=== PATIENT | male | born 1985 | race Caucasian/White ===

== ENCOUNTER → 2023-03-23 | Day surgery (SDC) | payer BC, OTHER ==
[~2023-03-23] MED LIST: BUPIVACAINE 0.25% PF 10 ML VIAL ONE; FENTANYL CITR 100 MCG/2 ML ONE; GLYCOPYRROLATE 0.2 MG/ML SYR ONE; HYDROCODONE/APAP 10/325 TAB ONE; KETOROLAC 30 MG/ML INJ ONE; MIDAZOLAM HCL 2 MG/2 ML INJ ONE; MORPHINE 4 MG/ML SYR ONE; NA CHLORIDE 0.9% 1,000 ML ONE; NA CHLORIDE 0.9% 100 ML ONE; NEOSTIGMINE 1 MG/ML -10 ML VIAL ONE; ONDANSETRON 4 MG/2 ML VIAL ONE; PIPERACIL/TAZO 3.375 GM VIAL IV ONE; ROCURONIUM 50 MG/5 ML VIAL IV ONE; Ringers Lactate 1,000 ML IV ONE; SUCCINYLCHOLINE 20 MG/ML (10 ML) IV ONE; propofoL 200 MG/20 ML VIAL IV ONE
[2023-03-23 12:40] LABS: Absolute Lymphocytes (CBC) 1.4 K/uL (0.7-4.9); Hematocrit 48.7 % (39.6-49.0); Lymphocytes % 6.8 % (15.3-44.8); MPV 7.8 fL (7.6-11.3); Platelets 296 thou/uL (152-406); RBC Red Blood Cell Count 5.59 M/uL (4.33-5.43)
--- NOTE | 2023-03-23 12:50 | RAD REPORT ---
EXAM DESCRIPTION: CTAbdomen Pelvis W Contrast - 03/23/2023 12:42 pm CLINICAL HISTORY: Abdominal pain. RLQ PAIN COMPARISON: No comparisons TECHNIQUE: Biphasic CT imaging of the abdomen and pelvis was performed with 100 ml non-ionic IV cont rast. All CT scans are performed using dose optimization technique as appropriate and may include automated exposure control or mA/KV adjustment according to patient size. FINDINGS: The lung bases are clear. The liver shows diffuse fatty liver. Spleen, pancreas, adrenal glands and kidneys are within normal l imits. No bowel obstruction, free air, free fluid or abscess. The appendix is enlarged and mildly inflamed measuring 13 mm. No evidence of significant lymphadenopathy. No suspicious bony findings. IMPRESSION: Acute appendicitis.
[2023-03-23 12:53] LABS: Specific Gravity > 1.030 (1.005-1.030); Urine Bacteria <20 /HPF (<20); Urine Bilirubin NEGATIVE (Negative); Urine Blood Trace (Negative); Urine Clarity Turbid (Clear); Urine Color Yellow (Yellow); Urine Glucose NEGATIVE (Negative); Urine Mucus 4+ /HPF (None Seen); Urine Protein 1+ (Negative); Urine RBC <5 /HPF (None Seen); Urine Urobilinogen Normal (Normal); Urine pH 5.5 (5.0-7.0)
--- NOTE | 2023-03-23 13:07 | ER ---
Nurse's Notes [facility] Name: Bairon Matthew II Age: 37 yrs Sex: Male : 1985 Arrival Date: 03/23/2023 Time: 11:57 Bed 14 Private MD: Diagnosis: Unspecified acute appendicitis Presentation: 03/23 12:10 Chief complaint: Patient states: RLQ pain since this morning. Vomited one time about an eh3 hour ago. Had breakfast early this morning and water to drink. Coronavirus screen: Vaccine status: Patient reports being unvaccinated. Ebola Screen: No symptoms or risks identified at this time. Initial Sepsis Screen: Does the patient meet any 2 criteria? No. Patient's initial sepsis screen is negative. Does the patient have a suspected source of infection? No. Patient's initial sepsis screen is negative. Risk Assessment: Do you want to hurt yourself or someone else? Patient reports no desire to harm self or others. Onset of symptoms was March 23, 2023. 12:10 Method Of Arrival: Ambulatory 3 12:10 Acuity: TRAY 3 eh3 Triage Assessment: 12:12 General: Appears distressed, uncomfortable, Behavior is cooperative, appropriate for [facility] age, restless. Pain: Complains of pain in right lower quadrant. GI: Abdomen is round non-distended, Reports lower abdominal pain, nausea, vomiting. Historical: - Allergies: 12:12 No Known Allergies; eh3 - Home Meds: 12:12 None [Active]; eh3 - Immunization history:: Adult Immunizations not up to date. - Social history:: Smoking status: Patient denies any tobacco usage or history of. Patient uses alcohol, on a daily basis. - Family history:: not pertinent. Screenin:15 [facility] ED Fall Risk Assessment (Adult) History of falling in the last 3 months, bp including since admission No falls in past 3 months (0 pts). Abuse screen: Denies threats or abuse. Denies injuries from another. Nutritional screening: No deficits noted. Tuberculosis screening: No symptoms or risk factors identified. Assessment: 12:15 General: SEE TRIAGE NOTE. bp 13:53 Reassessment: No changes from previously documented assessment. Patient is alert, bp oriented x 3, equal unlabored respirations, skin warm/dry/pink. 14:37 Reassessment: PT SHAHIDA TO OR. bp Vital Signs: 12:10 BP 153 / 107; Pulse 76; Resp 20; Temp 97.9(O); Pulse Ox 100% ; Weight 102.06 kg; Height eh3 6 ft. 0 in. ; Pain 9/10; 13:52 BP 119 / 77; Pulse 70; Resp 16; Pulse Ox 95% ; bp 14:36 BP 141 / 89; Pulse 59; Resp 16; Pulse Ox 95% ; bp 12:10 Body Mass Index 30.52 (102.06 kg, 182.88 cm) eh3 12:10 Pain Scale: Adult eh3 ED Course: 11:58 Patient arrived in ED. im 12:00 Wm Benitez MD is Attending Physician. rt 12:12 Triage completed. eh3 12:12 Arm band placed on. eh3 12:15 Patient has correct armband on for positive identification. Bed in low position. Call bp light in reach. Side rails up X2. Adult w/ patient. 12:16 George Sauer, NOELLE is Primary Nurse. bp 12:34 Inserted saline lock: 20 gauge in right forearm, using aseptic technique. Blood bp collected. 12:44 CT Abd/Pelvis - IV Contrast Only In Process Unspecified. EDMS 13:06 Terence Arnold MD is Hospitalizing Provider. rt 13:53 No provider procedures requiring assistance completed. Patient admitted, IV remains in bp place. Administered Medications: 12:32 Drug: morphine IVP or IV 4 mg Route: IVP; Infused Over: 4 mins; Site: right forearm; bp 13:54 Follow up: Response: No adverse reaction bp 12:33 Drug: TORadol - Ketorolac IVP 15 mg Route: IVP; Site: right forearm; bp 13:54 Follow up: Response: No adverse reaction bp 12:34 Drug: NS 0.9% IV 1000 ml Route: IV; Rate: 1 bolus; Site: right forearm; bp 13:53 Follow up: IV Status: Completed infusion; IV Intake: 1000ml bp 12:34 Drug: Ondansetron IVP 4 mg Route: IVP; Site: right forearm; bp 13:53 Follow up: Response: No adverse reaction bp 13:16 Drug: Piperacillin-Tazobactam IVPB 4.5 grams Route: IVPB; Infused Over: 60 mins; Site: bp right antecubital; 13:53 Follow up: IV Status: Completed infusion; IV Intake: 100ml bp 13:22 Drug: morphine IVP or IV 4 mg Route: IVP; Infused Over: 4 mins; Site: right antecubital;bp 13:53 Follow up: Response: No adverse reaction bp Medication: 12:15 VIS not applicable for this client. bp Intake: 13:53 IV: 100ml; Total: 100ml. bp 13:53 IV: 1000ml; Total: 1100ml. bp Outcome: 13:06 Decision to Hospitalize by Provider. rt 14:37 Admitted to OR accompanied by nurse, via wheelchair. bp 14:37 Condition: stable 14:37 Instructed on the need for admit. 14:37 Patient left the ED. bp Signatures: Dispatcher [employer] George Williamson RN RN bp Hall, Erin, RN RN 3 Wm Benitez MD MD rt Tamara Clements im
--- NOTE | 2023-03-23 13:07 | EDPHYS ---
Physician Documentation [facility] Name: Bairon Matthew II Age: 37 yrs Sex: Male : 1985 Arrival Date: 03/23/2023 Time: 11:57 Bed 14 Private MD: ED Physician Wm Benitez HPI: 03/23 13:06 This 37 yrs old Male presents to ER via Ambulatory with complaints of Abdominal Pain. rt 13:06 Patient presents to the ED with a sharp abdominal pain to the right lower quadrant rt starting this morning. Patient states that he felt well when he went to bed. The patient states that the pain is sharp, radiates to the periumbilical, to the right testicle. Denies any dysuria, hematuria. Patient did have nausea, vomiting. Denies hematemesis, hematochezia. Denies other acute complaints at this time, symptoms are moderate in severity, no other aggravating alleviating factors.. Historical: - Allergies: 12:12 No Known Allergies; eh3 - Home Meds: 12:12 None [Active]; eh3 - Immunization history:: Adult Immunizations not up to date. - Social history:: Smoking status: Patient denies any tobacco usage or history of. Patient uses alcohol, on a daily basis. - Family history:: not pertinent. ROS: 13:06 Constitutional: Negative for fever, chills, and weight loss, Cardiovascular: Negative rt for chest pain, palpitations, and edema, Respiratory: Negative for shortness of breath, cough, wheezing, and pleuritic chest pain, MS/Extremity: Negative for injury and deformity, Skin: Negative for injury, rash, and discoloration, Neuro: Negative for headache, weakness, numbness, tingling, and seizure, Psych: Negative for depression, anxiety, suicide ideation, homicidal ideation, and hallucinations. 13:06 Abdomen/GI: Positive for abdominal pain, nausea and vomiting. 13:06 : Positive for testicular pain Negative for burning with urination. Exam: 13:06 Constitutional: This is a well developed, well nourished patient who is awake, alert, rt and in no acute distress. Head/Face: Normocephalic, atraumatic. Chest/axilla: Normal chest wall appearance and motion. Nontender with no deformity. No lesions are appreciated. Cardiovascular: Regular rate and rhythm with a normal S1 and S2. No gallops, murmurs, or rubs. Normal PMI, no JVD. No pulse deficits. Respiratory: Lungs have equal breath sounds bilaterally, clear to auscultation and percussion. No rales, rhonchi or wheezes noted. No increased work of breathing, no retractions or nasal flaring. Skin: Warm, dry with normal turgor. Normal color with no rashes, no lesions, and no evidence of cellulitis. MS/ Extremity: Pulses equal, no cyanosis. Neurovascular intact. Full, normal range of motion. Neuro: Awake and alert, GCS 15, oriented to person, place, time, and situation. Cranial nerves II-XII grossly intact. Motor strength 5/5 in all extremities. Sensory grossly intact. Cerebellar exam normal. Normal gait. Psych: Awake, alert, with orientation to person, place and time. Behavior, mood, and affect are within normal limits. 13:06 Abdomen/GI: Tenderness to the right lower quadrant with guarding, no distention, Rovsing sign positive. 13:06 : Normal external genitalia, no testicular swelling, tenderness, no high riding testicle. Vital Signs: 12:10 BP 153 / 107; Pulse 76; Resp 20; Temp 97.9(O); Pulse Ox 100% ; Weight 102.06 kg; Height eh3 6 ft. 0 in. ; Pain 9/10; 13:52 BP 119 / 77; Pulse 70; Resp 16; Pulse Ox 95% ; bp 14:36 BP 141 / 89; Pulse 59; Resp 16; Pulse Ox 95% ; bp 12:10 Body Mass Index 30.52 (102.06 kg, 182.88 cm) eh3 12:10 Pain Scale: Adult eh3 MDM: 12:10 Patient medically screened. rt 03/23 12:17 Order name: CBC with Diff; Complete Time: 13:22 rt 03/23 12:17 Order name: CMP; Complete Time: 13:49 rt 03/23 12:17 Order name: Lipase; Complete Time: 13:49 rt 03/23 12:17 Order name: Urinalysis w/ reflexes; Complete Time: 13:00 rt 03/23 12:53 Order name: CBC Smear Scan; Complete Time: 13:22 EDMS 03/23 12:17 Order name: CT Abd/Pelvis - IV Contrast Only; Complete Time: 12:53 rt 07 12:17 Order name: IV Saline Lock; Complete Time: 12:32 rt 07 12:17 Order name: Labs collected and sent; Complete Time: 12:32 rt 03/23 12:40 Order name: Labs - recollect needed; Complete Time: 13:16 em1 Administered Medications: 12:32 Drug: morphine IVP or IV 4 mg Route: IVP; Infused Over: 4 mins; Site: right forearm; bp 13:54 Follow up: Response: No adverse reaction bp 12:33 Drug: TORadol - Ketorolac IVP 15 mg Route: IVP; Site: right forearm; bp 13:54 Follow up: Response: No adverse reaction bp 12:34 Drug: NS 0.9% IV 1000 ml Route: IV; Rate: 1 bolus; Site: right forearm; bp 13:53 Follow up: IV Status: Completed infusion; IV Intake: 1000ml bp 12:34 Drug: Ondansetron IVP 4 mg Route: IVP; Site: right forearm; bp 13:53 Follow up: Response: No adverse reaction bp 13:16 Drug: Piperacillin-Tazobactam IVPB 4.5 grams Route: IVPB; Infused Over: 60 mins; Site: bp right antecubital; 13:53 Follow up: IV Status: Completed infusion; IV Intake: 100ml bp 13:22 Drug: morphine IVP or IV 4 mg Route: IVP; Infused Over: 4 mins; Site: right antecubital;bp 13:53 Follow up: Response: No adverse reaction bp Disposition Summary: 03/23/23 13:06 Hospitalization Ordered Hospitalization Status: Observation rt Provider: Terence Arnold rt Location: Operating Room rt Condition: Stable rt Problem: new rt Symptoms: are unchanged rt Bed/Room Type: Standard rt Room Assignment: rt Diagnosis - Unspecified acute appendicitis rt Forms: - Medication Reconciliation Form rt - SBAR form rt Signatures: Dispatcher [employer] Ulisses Bernstein MD MD kdr Martinez, Eric em1 George Sauer, RN RN bp Soraya Costa RN RN eh3 Wm Benitez MD MD rt
[2023-03-23 13:21] LABS: Blood Morphology Comment NOT SEEN (NOT SEEN); Platelet Estimate ADEQ; Platelets, Giant 1+; White Blood Cell Scan NEUTROPHILIA (OK)
[2023-03-23 13:38] LABS: Albumin 3.9 g/dL (3.4-5.0); Bilirubin Total 2.5 mg/dL (0.2-1.0); Potassium 3.9 mEq/L (3.5-5.1); Protein, Total 7.9 g/dL (6.4-8.2)
[2023-03-23] MEDS: FENTANYL CITR 100 MCG/2 ML ONE ×2 (14:50→15:50)
--- NOTE | 2023-03-23 18:15 | P.OP ---
Preoperative diagnosis: Acute non-perforated appendicitis Postoperative diagnosis: Acute non-perforated appendicitis Primary procedure: Laparoscopic Appendectomy Anesthesia: GETA + Local Estimated blood loss: <10cc Specimen: Vermiform Appendix Findings: Acute non-perforated appendicitis Complications: None Transferred to: Recovery Room Condition: Good
[2023-03-23] MEDS: MEPERIDINE HCL 25 MG/ML SYR ONE ×2 (18:26→18:30)
[2023-03-23 18:57] VITALS: TEMP 97.8
--- NOTE | 2023-03-23 18:58 | OP ---
Date of Procedure: 03/23/2023 Surgeon: Terence Arnold MD, Preoperative Diagnosis: Acute nonperforated appendicitis. Postoperative Diagnosis: Acute nonperforated appendicitis. Procedure Performed: Laparoscopic appendectomy. Anesthesia: General endotracheal plus local with 0.25% Marcaine. Estimated Blood Loss: Less than 10 cc. Specimen: Vermiform appendix. Findings: Acute nonperforated appendicitis. Complications: None. Disposition: Patient transferred to recovery room in good condition. Procedure In Detail: After informed consent was obtained, patient was brought to the operating room, prepped and draped in the usual sterile fashion after adequate anesthesia was achieved. I anestheti zed an area of this infraumbilical position down to subcutaneous tissues with 0.25% Marcaine, sharply incised. A 5 mm 0-degree optical trocar was introduced in the abdomen without evidence of complicat ion. Insufflation was obtained to 15 mmHg at this time. There was no injury to vital structures upo n entry into the abdomen. Two additional trocars were placed, one in the right lower quadrant, one t o the right of midline in the right lower quadrant as well. Both were 5 mm trocars placed under dire ct visualization without evidence of complication. The infraumbilical trocar was then upsized to a 1 2 mm under direct visualization without evidence of complication. The patient was positioned head do wn right side up position. Ratcheted grasper was used to grasp the patient's appendix found in the r ight lower quadrant. This was grasped, elevated and a mesoappendiceal window was created with a Daisy giselle retractor. Endo-MARISA 60 fired across the base of the appendix with good approximation of tissues . I then used a LigaSure device to take down the mesoappendix. There was 1 pumping vessel through a partial transection. Using the LigaSure device, this was elevated, grasped, and LigaSure was used t o achieve hemostasis at this with a second capture with good hemostasis at this point. The appendix was then removed through the umbilical trocar site after being placed in EndoCatch bag and sent off f or pathologic examination. A reinsufflation was obtained at this point. The right lower quadrant wa s copiously irrigated multiple times, inspected. No additional hemostatic measures were required. T he area was suctioned out until completely clear. The pelvis was suctioned out after adequate irriga tion as well. The patient was positioned back in a neutral position. The remaining effluent was suc tioned out. No additional hemostatic measures were required. Cathy found in good anatomic positio n without any leakage of blood or bile. At this point, the 12 mm trocar site was closed using a Melchor Centeno suture passer with 0 Vicryl in running fashion with good approximation of tissues. The u mbilicus was then completely desufflated under direct visualization without evidence of complication. Remaining trocars were removed. All skin sites were then copiously irrigated, closed with 4-0 [place] cryl in a running fashion. Dermabond placed over top. The patient tolerated the procedure well with out evidence of any complication and transferred to PACU in good condition. All counts were correct at the end of the case. LAURO/HANNY Voice ID: [id number] Report ID: [id number]
[2023-03-23 19:34] VITALS: BP 134/83; O2SAT 95
--- NOTE | 2023-03-23 19:37 | HP ---
Date of Admission: 03/23/2023 Brief History Of Present Illness: Patient is a 37-year-old male who presents with abdominal pain beg inning approximately this morning. He states that his pain got progressively worse. It was associat ed with some nausea, vomiting. It got somewhat improved after a large bowel movement, however, it co ntinued to get much worse. He tried eating another muffin which seemed to make the pain significantl y worse. The pain was in the periumbilical region with significant localization to the right lower q uadrant at this point. He noted now worsening of nausea, vomiting, pain, fever, chills associated wi th all these symptoms and the pain has now localized in the right lower quadrant. He has never had s imilar episodes before in the past. No sick contacts. No recent travel. No new food exposures. Past Medical History: Negative. Past Surgical History: Negative. Allergies: NO KNOWN DRUG ALLERGIES. Medications: None. Social History: He vapes occasionally. He drinks alcohol 2 to 3 beers a day. He denies recreationa l drug use. Review of Systems: Ten-point review of systems other than HPI, denies. Physical Examination: At the time of my examination: General: He is awake, alert, and oriented. Psychiatric: He is appropriate, conversive. HEENT: He is normocephalic. Sclerae anicteric. Mucous membranes are moist. Oropharynx clear. Neck: Supple without JVD. Chest: Expansion and excursion. Cardiovascular: Regular rate and rhythm. Pulmonary: Clear to auscultation bilaterally. Abdomen: Soft with the positive right lower quadrant tenderness to palpation. Positive focal perito nitis at McBurney's point. Positive rebound. Positive guarding. Extremities: No clubbing, cyanosis, or edema. Skin: Warm and dry. Laboratory Data: Revealed a white blood cell count of 20.8, hemoglobin 16.6, hematocrit of 48.7, pat telet count was 296, neutrophils 87%. His sodium 133, potassium 3.9, chloride 104, carbon dioxide 23 , BUN 12, creatinine 1.25, glucose 132, calcium 9.6, total bilirubin 2.5, AST 35, ALT 86, alkaline ph osphatase is 83, lipase is 35. His UA showed trace blood, 4+ mucus, 1+ total protein. He had a CT s can performed of the abdomen and pelvis which showed the appendix enlarged, mildly inflamed, measurin g 13 mm. No evidence of significant lymphadenopathy. Official impression is acute appendicitis. Assessment And Plan: This is a 37-year-old male who presents with abdominal pain with acute onset of nonperforated appendicitis. 1.IV fluid hydration. 2.Antibiotic coverage with Zosyn 3.375 IV. 3.I have explained the risks, benefits, and alternatives of laparoscopic possible open appendectomy including, but not limited to, bleeding, infection, damage to surrounding tissue, need for further op erative procedures, injury to bowel, blood clots, strokes, heart attacks, trouble related to anesthes ia and medications, other unforeseen complication. Patient agrees to proceed as indicated. LAURO/HANNY Voice ID: [id number]
== END ==
LOC: ER 11:57 → DS 14:37
PROVIDERS: ATTEND Surgery
PROC: 0DTJ4ZZ Resection of Appendix, Percutaneous Endoscopic Approach (ICD-10-PCS; principal; 2023-03-23 19:00)
DX: K35.80 Unspecified acute appendicitis (principal); R10.9 Unspecified abdominal pain; R11.2 Nausea with vomiting, unspecified
CPT/HCPCS: 36415; 74177; 80053; 81001; 83690; 85025; 88304; 96361; 96365; 96375; 99285; J2175; J2250; J2405; J2543; J2704; J2710; J3010; J7030; J7120; Q9967

== ENCOUNTER 2023-04-27 21:36 | Inpatient (IN) | payer BC ==
--- OUTSIDE RECORDS SUMMARY | 2023-04-27 21:40 | XMS REPORT | Continuity of Care Document ---
:1985 Author Organization [facility] t Address [address] [place] [id number] Care Team Providers Name Role Phone Unavailable Unavailable Unavailable Problems This patient has no known problems. Allergies, Adverse Reactions, Alerts This patient has no known allergies or adverse reactions. Medications This patient has no known medications. Procedures This patient has no known procedures. Results This patient has no known results.
[2023-04-27] MEDS ORDERED: FAMOTIDINE 20 MG/2 ML VIAL IV ONE (21:59)
[2023-04-27] MEDS ORDERED: NA CHLORIDE 0.9% 1,000 ML ONE (21:59)
[2023-04-27] MEDS ORDERED: ONDANSETRON 4 MG/2 ML VIAL ONE (21:59)
[2023-04-27] MEDS ORDERED: HYDROMORPHONE HCL 1 MG/ML INJ ONE ×2 (21:59→23:13)
[2023-04-27 22:31] LABS: Protime INR 0.93
--- NOTE | 2023-04-27 22:32 | RAD REPORT ---
EXAM DESCRIPTION: [facility] Single View04/27/2023 10:25 pm CLINICAL HISTORY: Abdominal pain COMPARISON: none FINDINGS: The lungs appear clear of acute infiltrate. The heart is normal size IMPRESSION: No acute abnormalities displayed
[2023-04-27 22:45] LABS: Absolute Lymphocytes (CBC) 3.5 K/uL (0.7-4.9); Hematocrit 47.2 % (39.6-49.0); Lymphocytes % 22.7 % (15.3-44.8); MCV 85.7 fL (80-100); MPV 8.1 fL (7.6-11.3); Platelets 286 thou/uL (152-406); RBC Red Blood Cell Count 5.51 M/uL (4.33-5.43)
[2023-04-27 22:50] LABS: Bilirubin Direct 0.2 mg/dL (0-0.2); Bilirubin Indirect, Calculated 0.8 mg/dL (0.2-0.8); Magnesium 2.3 mg/dL (1.6-2.4); Potassium 3.5 mEq/L (3.5-5.1); Protein, Total 8.2 g/dL (6.4-8.2); Troponin High Sensitivity 3.2 pg/mL (<58.9)
[2023-04-28] MEDS ORDERED: HYDRALAZINE HCL 20 MG/ML VIAL ONE (00:13)
[2023-04-28] MEDS ORDERED: ONDANSETRON 4 MG/2 ML VIAL ONE ×2 (00:23→12:15)
[2023-04-28] MEDS ORDERED: KETOROLAC 30 MG/ML INJ ONE ×2 (00:24→12:15)
[2023-04-28] MEDS ORDERED: NA CHLORIDE 0.9% 1,000 ML ONE (00:24)
--- NOTE | 2023-04-28 01:43 | EDPHYS ---
Physician Documentation [facility] Name: Bairon Matthew II Age: 37 yrs Sex: Male : 1985 Arrival Date: 04/27/2023 Time: 21:36 Bed 19 Private MD: ED Physician Quinton Pandey HPI: 04/27 21:50 This 37 yrs old Male presents to ER via Wheelchair with complaints of Epigastric Pain. cp 21:50 The patient presents with abdominal pain in the epigastric area. Onset: The cp symptoms/episode began/occurred today, about 1900. The symptoms radiate to low back. Associated signs and symptoms: Pertinent positives: chest pain, nausea, Pertinent negatives: constipation, diarrhea, fever, shortness of breath, testicular pain, vomiting, vomiting blood. The symptoms are described as constant. Historical: - Allergies: 21:45 No Known Allergies; cm10 - Home Meds: 21:45 None [Active]; cm10 - PMHx: 21:45 None; cm10 - PSHx: 21:45 Appendectomy; cm10 - Immunization history:: Adult Immunizations unknown. - Social history:: Smoking status: Reported history of juuling and/or vaping. ROS: 21:55 Constitutional: Negative for body aches, chills, fever, poor PO intake. cp 21:55 Eyes: Negative for injury, pain, redness, and discharge. cp 21:55 Respiratory: Negative for cough, shortness of breath, wheezing. 21:55 Abdomen/GI: Positive for abdominal pain, nausea, of the epigastric area, Negative for vomiting, diarrhea, constipation. 21:55 ENT: Negative for drainage from ear(s), ear pain, sore throat, difficulty swallowing, cp difficulty handling secretions. 21:55 Cardiovascular: Positive for chest pain, Negative for edema, palpitations. 21:55 Back: Positive for pain at rest, pain with movement, of the low back. 21:55 : Negative for urinary symptoms, testicular pain 21:55 Neuro: Negative for altered mental status, dizziness, headache, numbness, syncope, weakness. 21:55 All other systems are negative. cp Exam: 21:50 ECG was reviewed by the Attending Physician. cp 22:00 Constitutional: The patient appears alert, awake, non-toxic, well developed, well cp nourished, diaphoretic, in obvious distress, in obvious pain. 22:00 Head/Face: Normocephalic, atraumatic. cp 22:00 Eyes: Periorbital structures: appear normal, Conjunctiva: normal, no exudate, no injection, Sclera: no appreciated abnormality, Lids and lashes: appear normal, bilaterally. 22:00 ENT: External ear(s): are unremarkable, Nose: is normal, Mouth: Lips: moist, Oral mucosa: pink and intact, moist, Posterior pharynx: is normal, airway is patent, no erythema, no exudate. 22:00 Neck: ROM/movement: is normal, is supple, without pain, no range of motions limitations. 22:00 Chest/axilla: Inspection: normal, Palpation: is normal, no crepitus, no tenderness. 22:00 Cardiovascular: Rate: normal, Rhythm: regular, Edema: is not appreciated, JVD: is not appreciated. 22:00 Respiratory: the patient does not display signs of respiratory distress, Respirations: normal, no use of accessory muscles, no retractions, labored breathing, is not present, Breath sounds: are clear throughout, no decreased breath sounds, no stridor, no wheezing. 22:00 Abdomen/GI: Inspection: abdomen appears normal, Bowel sounds: active, all quadrants, Palpation: soft, in all quadrants, severe abdominal tenderness, in the epigastric area, voluntary guarding, is elicited in the epigastric area. 22:00 Back: pain, that is moderate, of the low back area. 22:00 Neuro: Orientation: to person, place \T\ time. Mentation: is normal. 22:47 ECG was reviewed by the Attending Physician. cp Vital Signs: 21:34 BP 175 / 103; Pulse 67; Resp 20 S; Pulse Ox 100% on R/A; ha1 21:43 BP 175 / 103; Pulse 65; Resp 18 S; Pulse Ox 100% on R/A; Weight 102.06 kg; Height 6 ft. cm10 0 in. ; Pain 10/10; 22:20 BP 174 / 98; Pulse 55; Resp 17; Pulse Ox 100% on R/A; ha1 22:30 BP 185 / 107; Pulse 42; Resp 18 S; Pulse Ox 100% on R/A; ha1 23:00 BP 184 / 108; Pulse 46; Resp 17 S; Pulse Ox 100% on R/A; ha1 23:30 BP 187 / 95; Pulse 56; Resp 17 S; Pulse Ox 100% on R/A; ha1 23:55 BP 214 / 104; Pulse 38; Resp 16 S; Pulse Ox 100% on R/A; ha1 04/28 00:08 BP 195 / 95; Pulse 37; Resp 16 S; Pulse Ox 100% on R/A; ha1 00:35 BP 152 / 81; Pulse 78; Resp 20; Pulse Ox 99% on R/A; ha1 01:00 BP 142 / 81; Pulse 75; Resp 18 S; Pulse Ox 98% on R/A; ha1 01:30 BP 149 / 89; Pulse 74; Resp 18 S; Pulse Ox 99% on R/A; ha1 04/27 21:43 Body Mass Index 30.52 (102.06 kg, 182.88 cm) cm10 21:43 Pain Scale: Adult cm10 MDM: 04/27 21:42 Patient medically screened. 04/28 20:35 Data reviewed: vital signs, nurses notes, lab test result(s), radiologic studies, CT sp4 scan, ultrasound. ED course: Patient was ear marked for admission . 04/27 21:46 Order name: Basic Metabolic Panel; Complete Time: 22:59 cp 04/27 23:13 Interpretation: Normal except: GLUC 114; GFR 76. cp 04/27 21:46 Order name: CBC with Diff; Complete Time: 22:59 cp 04/27 23:13 Interpretation: Normal except: WBC 15.40; RBC 5.51; NEUT A 10.4. cp 04/27 21:46 Order name: LFT's; Complete Time: 22:59 cp 04/27 23:13 Interpretation: Normal except: ALT 80; GLOB 4.2; A/G 1.0. cp 04/27 21:46 Order name: Magnesium; Complete Time: 22:59 cp 04/27 21:46 Order name: PT-INR; Complete Time: 22:59 cp 04/27 21:46 Order name: Troponin HS; Complete Time: 22:59 cp 04/27 23:13 Interpretation: Reviewed. cp 04/27 21:46 Order name: Lipase; Complete Time: 22:59 cp 04/27 23:13 Interpretation: Reviewed. cp 04/27 23:59 Order name: UDS; Complete Time: 20:36 cp 08/07 23:59 Order name: Urinalysis W/Microscopic; Complete Time: 20:36 cp 08/08 00:34 Order name: Blood Culture Adult (2) cp 08/ 00:34 Order name: Lactate w/ 2H reflex if indic.; Complete Time: 20:36 cp 08 21:46 Order name: XRAY Chest (1 view); Complete Time: 22:59 cp 04/27 22:35 Order name: CT Aorta for Dissection; Complete Time: 20:36 cp 04/27 23:38 Order name: US Abdomen Limited; Complete Time: 20:36 cp 04/27 21:46 Order name: EKG; Complete Time: 21:47 cp 04/27 21:46 Order name: Cardiac monitoring; Complete Time: 22:24 cp 04/27 21:46 Order name: EKG - Nurse/Tech; Complete Time: 22:24 cp 04/27 21:46 Order name: IV Saline Lock; Complete Time: 22:24 cp 04/27 21:46 Order name: Labs collected and sent; Complete Time: 22:24 cp 04/27 21:46 Order name: O2 Per Protocol; Complete Time: 22:24 cp 04/27 21:46 Order name: O2 Sat Monitoring; Complete Time: 22:24 cp EC/07 21:50 Rate is 59 beats/min. Rhythm is regular. WV interval is normal. QRS interval is normal. cp QT interval is normal. T waves are Inverted in leads aVL, aVR. Interpreted by me. Reviewed by me. 22:47 Rate is 42 beats/min. Rhythm is regular. WV interval is normal. QRS interval is normal. cp QT interval is normal. T waves are Inverted in lead aVR. Interpreted by me. Reviewed by me. Administered Medications: 22:12 Drug: NS 0.9% IV 1000 ml Route: IV; Rate: 1 bolus; Site: right upper arm; ha1 22:12 Drug: Famotidine IVP 20 mg Route: IVP; Site: right upper arm; ha1 22:14 Drug: Ondansetron IVP 4 mg Route: IVP; Site: right upper arm; ha1 22:16 Drug: HYDROmorphone IVP 1 mg Route: IVP; Site: right upper arm; ha1 23:00 Drug: HYDROmorphone IVP 1 mg Route: IVP; Site: right upper arm; ha1 04/28 00:00 Not Given (Physician Discretion): Ativan IVP 0.5 mg IVP once cp 00:01 CANCELLED (Physician Discretion): hydrALAZINE IVP 10 mg IVP once cp 00:05 Drug: hydrALAZINE IVP 20 mg Route: IVP; Site: right upper arm; ha1 00:12 Drug: NS 0.9% IV 1000 ml Route: IV; Rate: 1 bolus; Site: right upper arm; ha1 00:12 Drug: Ketorolac IVP 15 mg Route: IVP; Site: right upper arm; ha1 00:14 Drug: Ondansetron IVP 4 mg Route: IVP; Site: right upper arm; ha1 02:29 Drug: Piperacillin-Tazobactam IVPB 3.375 grams Route: IVPB; Infused Over: 60 mins; ha1 Site: left antecubital; Disposition: 02:12 Co-signature as Attending Physician, Quinton Pandey MD I agree with the assessment sp4 and plan of care. I reviewed the patient's care provided by Advanced Practice Provider \T\ agree w/ the diagnosis \T\ care plan. I personally saw the pt \T\ performed a substantive portion of the visit, incldng all aspects of the (History/Exam/Medical Decision Making). Disposition Summary: 04/28/23 01:43 Hospitalization Ordered Hospitalization Status: Inpatient Admission cp Provider: Tomasz Pemberton cp Location: Telemetry/MedSurg (Inpatient) cp Condition: Stable cp Problem: new cp Symptoms: have improved cp Bed/Room Type: Standard cp Room Assignment: 404(04/28/23 02:22) cg Diagnosis - Acute cholecystitis cp - Bradycardia, unspecified cp - Elevated blood-pressure reading, without diagnosis of hypertension cp Forms: - Medication Reconciliation Form cp - SBAR form cp Signatures: Dispatcher [employer] EDMS Rito Gomez PA PA cp Garcia, Cindy, RN RN cg Manjula Rosa RN RN Quinton Barbosa MD MD sp4 Aylin Wick RN RN cm10 Corrections: (The following items were deleted from the chart) 00:01 00:01 hydrALAZINE IVP 10 mg IVP once ordered. cp cp 02:22 01:43 cp cg 03:06 04/27 21:50 This 37 yrs old Male presents to ER via Wheelchair with complaints of Chest cp Pain. cp
--- NOTE | 2023-04-28 01:43 | ER ---
Nurse's Notes [facility] Name: Bairon Matthew II Age: 37 yrs Sex: Male : 1985 Arrival Date: 04/27/2023 Time: 21:36 Bed 19 Private MD: Diagnosis: Acute cholecystitis;Bradycardia, unspecified;Elevated blood-pressure reading, without diagnosis of hypertension Presentation: 04/27 21:43 Chief complaint: Patient states: epigastric pain onset at 1900. Pt states that the pain cm10 started after he got home from work. Pt describes the pain as a sharp pain and reports vomiting 3-4 times. Pt states that the pain does not radiate and rates it a 12/10. Coronavirus screen: Client denies travel out of the [place] in the last 14 days. Ebola Screen: Patient denies travel to an Ebola-affected area in the 21 days before illness onset. No symptoms or risks identified at this time. Initial Sepsis Screen: Does the patient meet any 2 criteria? No. Patient's initial sepsis screen is negative. Does the patient have a suspected source of infection? No. Patient's initial sepsis screen is negative. Risk Assessment: Do you want to hurt yourself or someone else? Patient reports no desire to harm self or others. Onset of symptoms was April 27, 2023 at 19:00. 21:43 Method Of Arrival: Wheelchair cm10 21:43 Acuity: TRAY 3 cm10 Triage Assessment: 21:28 General: Appears uncomfortable, Behavior is cooperative, anxious, crying, restless. ha1 General: Appears. Pain: Complains of pain in epigastric area Pain radiates to back Pain currently is 10 out of 10 on a pain scale. Quality of pain is described as burning, crampy, sharp, throbbing. Neuro: Level of Consciousness is awake, alert, obeys commands, Oriented to person, place, time, situation. Cardiovascular: Heart tones S1 S2 present Patient's skin is warm and dry. Respiratory: Airway is patent Respiratory effort is even, unlabored, Respiratory pattern is regular, symmetrical. GI: Abdomen is round non-distended, Bowel sounds present X 4 quads. Reports epigastric pain, nausea, vomiting. : No signs and/or symptoms were reported regarding the genitourinary system. Derm: Skin is pale. Musculoskeletal: Circulation, motion, and sensation intact. Historical: - Allergies: 21:45 No Known Allergies; cm10 - Home Meds: 21:45 None [Active]; cm10 - PMHx: 21:45 None; cm10 - PSHx: 21:45 Appendectomy; cm10 - Immunization history:: Adult Immunizations unknown. - Social history:: Smoking status: Reported history of juuling and/or vaping. Screenin:38 [facility] ED Fall Risk Assessment (Adult) History of falling in the last 3 months, ha1 including since admission No falls in past 3 months (0 pts) Confusion or Disorientation No (0 pts) Intoxicated or Sedated No (0 pts) Impaired Gait No (0 pts) Mobility Assist Device Used No (0 pt) Altered Elimination No (0 pt) Score/Fall Risk Level 0 - 2 = Low Risk Oriented to surroundings, Maintained a safe environment, Educated pt \\T\\ family on fall prevention, incl call for assistance when getting out of bed. Abuse screen: Denies threats or abuse. Denies injuries from another. Nutritional screening: No deficits noted. Tuberculosis screening: No symptoms or risk factors identified. Assessment: 21:38 Reassessment: see triage assessment. ha1 21:45 Reassessment: vomiting. ha1 22:00 Reassessment: Patient and/or family updated on plan of care and expected duration. Pain ha1 level reassessed. notified care provider Page about irregular heart rate. States "repeat EKG". 04/28 00:35 Reassessment: Patient and/or family updated on plan of care and expected duration. Pain ha1 level reassessed. Patient is alert, oriented x 3, equal unlabored respirations, skin warm/dry/pink. Patient states feeling better. Patient states symptoms have improved. 01:30 Reassessment: Patient and/or family updated on plan of care and expected duration. Pain ha1 level reassessed. Patient is alert, oriented x 3, equal unlabored respirations, skin warm/dry/pink. pain 8/10 Patient states feeling better. Patient states symptoms have improved. 02:33 Reassessment: attempted to give report. 1 Vital Signs: 04/27 21:34 BP 175 / 103; Pulse 67; Resp 20 S; Pulse Ox 100% on R/A; ha1 21:43 BP 175 / 103; Pulse 65; Resp 18 S; Pulse Ox 100% on R/A; Weight 102.06 kg; Height 6 ft. cm10 0 in. ; Pain 10/10; 22:20 BP 174 / 98; Pulse 55; Resp 17; Pulse Ox 100% on R/A; ha1 22:30 BP 185 / 107; Pulse 42; Resp 18 S; Pulse Ox 100% on R/A; ha1 23:00 BP 184 / 108; Pulse 46; Resp 17 S; Pulse Ox 100% on R/A; ha1 23:30 BP 187 / 95; Pulse 56; Resp 17 S; Pulse Ox 100% on R/A; ha1 23:55 BP 214 / 104; Pulse 38; Resp 16 S; Pulse Ox 100% on R/A; ha1 04/28 00:08 BP 195 / 95; Pulse 37; Resp 16 S; Pulse Ox 100% on R/A; ha1 00:35 BP 152 / 81; Pulse 78; Resp 20; Pulse Ox 99% on R/A; ha1 01:00 BP 142 / 81; Pulse 75; Resp 18 S; Pulse Ox 98% on R/A; ha1 01:30 BP 149 / 89; Pulse 74; Resp 18 S; Pulse Ox 99% on R/A; ha1 04/27 21:43 Body Mass Index 30.52 (102.06 kg, 182.88 cm) cm10 21:43 Pain Scale: Adult cm10 ED Course: 04/27 21:38 Patient arrived in ED. kj1 21:42 Rito Gomez PA is PHCP. cp 21:42 Quinton Pandey MD is Attending Physician. cp 21:45 Triage completed. cm10 21:45 Arm band placed on Patient placed in an exam room, on a stretcher, on clinical research monitor, cm10 on pulse oximetry. EKG completed in triage. Results shown to MD. 21:48 Missed attempt(s): 20 gauge in right antecubital area. ha1 22:20 Inserted saline lock: 20 gauge in right upper arm, using aseptic technique. Blood ha1 collected. 22:22 Manjula Rosa, NOELLE is Primary Nurse. ha1 22:24 Basic Metabolic Panel Sent. ha1 22:24 CBC with Diff Sent. ha1 22:24 LFT's Sent. ha1 22:24 Magnesium Sent. ha1 22:24 PT-INR Sent. ha1 22:24 Troponin HS Sent. ha1 22:26 XRAY Chest (1 view) In Process Unspecified. EDMS 23:38 CT Aorta for Dissection In Process Unspecified. EDMS 08 00:15 US Abdomen Limited In Process Unspecified. EDMS 01:42 Tomasz Pemberton MD is Hospitalizing Provider. cp 02:10 Inserted saline lock: 20 gauge in left antecubital area, using aseptic technique. Blood pf1 collected. 02:28 Blood Culture Adult (2) Sent. pf1 03:25 No provider procedures requiring assistance completed. Patient admitted, IV remains in ha1 place. Administered Medications: 04/27 22:12 Drug: NS 0.9% IV 1000 ml Route: IV; Rate: 1 bolus; Site: right upper arm; ha1 22:12 Drug: Famotidine IVP 20 mg Route: IVP; Site: right upper arm; ha1 22:14 Drug: Ondansetron IVP 4 mg Route: IVP; Site: right upper arm; ha1 22:16 Drug: HYDROmorphone IVP 1 mg Route: IVP; Site: right upper arm; ha1 23:00 Drug: HYDROmorphone IVP 1 mg Route: IVP; Site: right upper arm; ha1 04/28 00:00 Not Given (Physician Discretion): Ativan IVP 0.5 mg IVP once cp 00:01 CANCELLED (Physician Discretion): hydrALAZINE IVP 10 mg IVP once cp 00:05 Drug: hydrALAZINE IVP 20 mg Route: IVP; Site: right upper arm; ha1 00:12 Drug: NS 0.9% IV 1000 ml Route: IV; Rate: 1 bolus; Site: right upper arm; ha1 00:12 Drug: Ketorolac IVP 15 mg Route: IVP; Site: right upper arm; ha1 00:14 Drug: Ondansetron IVP 4 mg Route: IVP; Site: right upper arm; ha1 02:29 Drug: Piperacillin-Tazobactam IVPB 3.375 grams Route: IVPB; Infused Over: 60 mins; ha1 Site: left antecubital; Medication: 03:26 VIS not applicable for this client. ha1 Outcome: 01:43 Decision to Hospitalize by Provider. cp 03:25 Admitted to Tele accompanied by amaya, via stretcher, room 404, with chart, Report ha1 called to Suzy 03:25 Condition: stable 03:25 Discharge instructions given to patient, Instructed on the need for admit, Demonstrated understanding of instructions. 03:48 Patient left the ED. ha1 Signatures: Dispatcher [employer] EDMS Rito Gomez PA PA cp Xochilt Mendes kj1 Manjula Rosa RN RN ha1 Earlene Romano RN RN pf1 Aylin Wick RN RN cm10 Corrections: (The following items were deleted from the chart) 04/27 22:25 22:20 HYDROmorphone IVP 1 mg IVP in right upper arm ha1 ha1
[2023-04-28 01:45] LABS: Urine Bacteria None Seen /HPF (<20); Urine Bilirubin NEGATIVE (Negative); Urine Blood Negative (Negative); Urine Clarity Clear (Clear); Urine Color Colorless (Yellow); Urine Glucose TRACE (Negative); Urine Protein NEGATIVE (Negative); Urine RBC None Seen /HPF (None Seen); Urine Urobilinogen Normal (Normal); Urine pH 6.5 (5.0-7.0)
[2023-04-28 01:50] LABS: Specific Gravity > 1.035 (1.005-1.030)
[2023-04-28 02:18] LABS: Barbiturates NEGATIVE (NEGATIVE); Benzodiazepines NEGATIVE (NEGATIVE); Cocaine NEGATIVE (NEGATIVE); METHAMPHETAM NEGATIVE (NEGATIVE); Methadone NEGATIVE (NEGATIVE); Opiates NEGATIVE (NEGATIVE); Phencyclidine NEGATIVE (NEGATIVE); THC Cannibis NEGATIVE (NEGATIVE)
[2023-04-28] MEDS ORDERED: NA CHLORIDE 0.9% 100 ML ONE (02:21)
[2023-04-28] MEDS ORDERED: PIPERACIL/TAZO 3.375 GM VIAL IV ONE (02:22)
[2023-04-28] MEDS ORDERED: HYDROMORPHONE HCL 0.5 MG/0.5 ML INJ IV PRN (02:23)
[2023-04-28] MEDS ORDERED: ONDANSETRON 4 MG/2 ML VIAL IV PRN (02:23)
[2023-04-28] MEDS ORDERED: PROMETHAZINE INJ 25 MG/ML AMP IV PRN (02:43)
--- NOTE | 2023-04-28 02:45 | P.HP ---
Certification for Inpatient Patient admitted to: Inpatient With expected LOS: <2 Midnights Patient will require the following post-hospital care: None Practitioner: I am a practitioner with admitting privileges, knowledge of patient current condition, hospital course, and medical plan of care. Services: Services provided to patient in accordance with Admission requirements found in Title 42 Section 412.3 of the Code of Federal Regulations Patient History Date of Service: 04/28/23 Reason for admission: epigastric pain History of Present Illness: 37 year old male with not significant past medical history presents to the emergency room for epigastric pain. He reports pain started today, is progressively getting worse, radiates to back, he reports associated nausea, vomiting, unable to tolerate PO intake. He reports appendectomy x 1 mo ago. He denies fever, chills, cough, shortness of breath.On arrival to Emergency room was hypertensive. BP was 175/103, had noted bradycardia, he denies cardiac history. Radiology reports, CT choleycytitis, Lab evaluation leukocytois, wbc 15.5, plan to admit for acute cholecysitis, keep NPO surgical consult in am. Allergies No Known Drug Allergies Allergy (Unverified 09/21/14 14:15) Unknown Home Medications: NK [No Home Meds] 04/28/23 - Past Medical/Surgical History Past Medical History: Patient denies medical history -: appendectomy x 1 mo ago - Social History Smoking Status: Smoker current status UNK Alcohol use: No CD- Drugs: No Caffeine use: No Review of Systems 10-point ROS is otherwise unremarkable Physical Examination - Physical Exam General: Alert, In no apparent distress, Mild distress, Other (epigastric pain) HEENT: Atraumatic, Normocephalic, PERRLA Neck: Supple, 2+ carotid pulse no bruit Respiratory: Clear to auscultation bilaterally, Normal air movement Cardiovascular: No edema, Normal pulses, Other (bradycardia) Capillary refill: <2 Seconds Gastrointestinal: Normal bowel sounds, Hypoactive, Other (RUQ tenderness) Musculoskeletal: No clubbing, No swelling Integumentary: No rashes, No breakdown Neurological: Normal speech, Cranial nerves 3-12 intact - Studies Laboratory Data (last 24 hrs) 04/27/23 04/27/23 04/27/23 22:16 22:16 22:16 WBC 15.40 H Hgb 16.1 Hct 47.2 Plt Count 286 PT 10.2 INR 0.93 Sodium 138 Potassium 3.5 BUN 12 Creatinine 1.27 Glucose 114 H Magnesium 2.3 Total Bilirubin 1.0 AST 30 ALT 80 H Alkaline Phosphatase 90 Lipase 45 Assessment and Plan - Plan Assessment/Plan Acute cholecytitis episodic Hypertensive bradycardia abdominal pain, nausea, vomiting DVT SCD Assessment/Plan Acute cholecytitis abdominal pain, nausea, vomiting abdominal US, CT disection ordered surgical consult, keep NPO, PRN analgesics, antiemetic episodic Hypertensive bradycarida cardiology consult UDS neg EKG marked sinus bradycardia rate 42 with PAC Diet NPO full code DVT proplx SCD Discharge Plan: Home Plan to discharge in: 48 Hours - Advance Directives Does patient have a Living Will: No Does patient have a Durable POA for Healthcare: No - Code Status/Comfort Care Code Status: Full Code Physician Review: Patient Assessed, Agree with Above Assessment and Plan Critical Care: No Time Spent Managing Pts Care (In Minutes): 50
[2023-04-28] MEDS ORDERED: PROMETHAZINE INJ 25 MG/ML AMP ONE (03:42)
[2023-04-28] MEDS ORDERED: HYDROMORPHONE HCL 0.5 MG/0.5 ML INJ ONE (03:43)
[2023-04-28] MEDS: NA CHLORIDE 0.9% 1,000 ML IV SCH ×2 (03:59→15:12)
[2023-04-28 04:12] VITALS: BMI 30.5
[2023-04-28] MEDS: PIPER TAZO 3.375 GM in NA CHLORIDE 0.9% 100 ML IV SCH ×2 (08:44→16:21)
[2023-04-28] MEDS ORDERED: KCL 20 MEQ/100 mL IVPB 20 MEQ/100 ML BAG IV SCH (09:00)
[2023-04-28] MEDS ORDERED: BUPIVACAINE 0.25% PF 30 ML VIAL ONE ×2 (11:31→11:39)
[2023-04-28] MEDS ORDERED: Ringers Lactate 1,000 ML IV ONE (11:46)
[2023-04-28] MEDS ORDERED: MIDAZOLAM HCL 2 MG/2 ML INJ ONE (12:14)
[2023-04-28] MEDS ORDERED: propofoL 200 MG/20 ML VIAL IV ONE (12:14)
[2023-04-28] MEDS ORDERED: GLYCOPYRROLATE 0.2 MG/ML SYR ONE ×2 (12:14→14:09)
[2023-04-28] MEDS ORDERED: FENTANYL CITR 100 MCG/2 ML ONE ×2 (12:14→12:59)
[2023-04-28] MEDS ORDERED: LIDOCAINE 1% MPF 5 ML VIAL ONE (12:14)
[2023-04-28] MEDS ORDERED: dexAMETHasone 4 MG/ML VIAL ONE (12:15)
[2023-04-28] MEDS ORDERED: ROCURONIUM 50 MG/5 ML VIAL IV ONE (12:15)
[2023-04-28] MEDS ORDERED: NEOSTIGMINE 1 MG/ML -10 ML VIAL ONE (12:15)
[2023-04-28] MEDS ORDERED: KETAMINE HCL IN 0.9 % NACL 50 MG/5 ML SYRINGE IV ONE (12:59)
--- NOTE | 2023-04-28 13:59 | P.OP ---
Preoperative diagnosis: Acute Cholecystitis Postoperative diagnosis: Acute Gangrenous Cholecystitis Primary procedure: Laparoscopic Cholecystectomy with ICG Anesthesia: GETA + Local Estimated blood loss: 20cc Specimen: Gallbladder Findings: Gangrenous GB, thick inflammatory rind, bilious staining to abdomen Complications: None Transferred to: Recovery Room Condition: Good
[2023-04-28] MEDS ORDERED: LIDOCAINE 2% MPF 5 ML VIAL ONE (14:02)
[2023-04-28] MEDS ORDERED: HYDROCODONE/APAP 5/325 MG TAB PO PRN (14:04)
[2023-04-28 14:41] VITALS: O2SAT 97
--- NOTE | 2023-04-28 14:48 | OP ---
Date of Procedure: 04/28/2023 Surgeon: Terence Arnold MD, Preoperative Diagnosis: Acute cholecystitis. Postoperative Diagnosis: Acute gangrenous cholecystitis. Procedure: Laparoscopic cholecystectomy with Indocyanine green cholangiography. Anesthesia: General endotracheal plus local with 0.25% Marcaine. Estimated Blood Loss: Less than 20 cc. Specimen: Gallbladder. Findings: Gallbladder was gangrenous. There was thick inflammatory rind encompassing the entire gallbladder and there was bilious staining to the abdomen prior to any intervention. Complications: None. Disposition: The patient was transferred to the recovery room in good condition. Procedure In Detail: After informed consent was obtained, the patient was brought to the operating room, prepped and draped in the usual sterile fashion after adequate anesthesia was achieved. I anesthetized the supraumbilical position down to subcutaneous tissues, made a sharp incision and a 5 mm 0-degree optical trocar was introduced into the abdomen without evidence of complication. Insufflation obtained to 15 mmHg at this time. There was no injury to vital structures upon entry into the abdomen. Three additional trocars were placed, 1 in the epigastrium, 1 in the right upper quadrant and 1 in the right mid abdomen. All these were 5 mm trocars placed under direct visualization without evidence of complication. The umbilical trocar was then upsized to a 12 mm under direct visualization without evidence of complication. The patient was positioned head up right-side up position. Ratcheted grasper was used to attempt to grasp the gallbladder and was found to be quite distended and tense and unable to grasp at this point. I noted the abdominal compartment had some bilious staining to the right upper quadrant. I then placed a decompression needle into the abdomen at this point and stabbed the gallbladder in the Jennifer pouch of the gallbladder decompressing dark green bile material at this point. After the gallbladder was decompressed, I removed the needle at this point and grasped the gallbladder at the fundus of the gallbladder, placed toward the right shoulder and then continued the dissection down removing significant inflammatory rind of the anterior surface the gallbladder to expose the gallbladder wall off the omentum, which was firmly attached to the anterior gallbladder as well. After this was mobilized completely using combination of electrocautery and blunt dissection, I skeletonized 2 structures identified as both cystic duct and cystic artery. Critical view of safety was obtained at this point. I use ICG cholangiography to confirm the position and the anatomic structures as described. At this point, there was minimal green coloration with the Indocyanine green cholangiography. The structure being skeletonized, identified as both the cystic duct and cystic artery with double titanium clip on this proximal side and singly on the distal side. I then used Endo Liza to ligate these 2 structures. The gallbladder was then removed from the hepatic fossa and placed in an EndoCatch bag, removed through the umbilical trocar. I used electrocautery to cauterize the gallbladder bed significantly as there were significant inflammatory changes and oozing from many aspects of the gallbladder bed, predominately from the mid portion of the gallbladder hepatic fossa away from any of the clip structures and away from the triangle of Calot. Cautery stayed predominantly on the mid to upper distal aspect of the gallbladder fundus region of the hepatic fossa. After this was completed, the area was copiously irrigated multiple times and suctioned out until completely dry. All effluent was dried at this point. Clips were found to be in good anatomic position at the end of the procedure. I then placed the patient back in a neutral position and suctioned remaining effluent at this point. The 12 mm trocar site was then closed using a Cruz-Ronaldo suture passer with 0 Vicryl in an interrupted fashion with good reapproximation of tissues. The abdomen was completely desufflated under visualization without evidence of complication. All remaining trocars were removed. All skins were then copiously irrigated and closed with a 4-0 Monocryl in a running fashion. Dermabond placed over top. The patient tolerated the procedure well without evidence of complication and transferred to PACU in good condition. All counts were correct at the end of the case. LAURO/HANNY Voice ID: [id number] Report ID: [id number] AMERICO
--- NOTE | 2023-04-28 20:17 | RAD REPORT ---
EXAM DESCRIPTION: ADDENDUM #1 No significant atherosclerotic plaque is identified and does not appear to be causing the celiac trun k stenosis. Correlate with signs or symptoms of median arcuate ligament syndrome. The findings were verbally discussed via telephone conference with YANE Valerio by Dr. Bill on 2022 1:00 AM CDT. The results were acknowledged and understood. Electronically signed by: Manjula Bill MD 04/28/2023 1:04 AM CDT End of Addendum EXAM: 1. CTA of the chest with contrast. 2. CTA of the abdomen and pelvis with contrast. CLINICAL HISTORY: Epigastric pain, back pain COMPARISON: Report from single view chest [address] abdomen pelvis 03/23/2023. No images available at time of dictation for direct comparison. TECHNIQUE: CTA of the chest , abdomen, and pelvis obtained following the administration of IV contra st. 3-D/MIP reformatted images available. This exam was performed according to our departmental dose- optimization program, which includes automated exposure control, adjustment of the mA and/or kV accor ding to patient size and/or use of iterative reconstruction technique. FINDINGS: Vascular: No thoracic aortic aneurysm or dissection. Arch vessels have normal anatomic con figuration, and are patent, as visualized. Normal caliber abdominal aorta without aneurysm or dissection. 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 The di stal celiac trunk and branches appear patent. The superior mesenteric and inferior mesenteric arterie s are patent. Bilateral iliac arteries and visualized pelvic runoff is patent. Chest: Pulmonary arteries: Contrast bolus is adequate.No filling defects identified in the pulmonary arterie s to suggest pulmonary embolus. Thyroid: No abnormalities of the visualized thyroid gland. Heart: No cardiomegaly, significant pericardial effusion, or coronary artery atherosclerosis Lymph Nodes: No enlarged mediastinal, hilar, or axillary lymph nodes identified. Esophagus: No abnormalities of the esophagus identified. Other: Mild bilateral gynecomastia. Lungs: Bilateral dependent atelectasis. Pleura: No pleural effusion or pneumothorax. Trachea/Airways: No abnormalities of the visualized trachea or airways. Abdomen: Liver: Normal contour with diffuse decreased density and focal sparing adjacent to the gallbladder. N o suspicious mass identified within the limitations of phase of contrast. Gallbladder: Diffuse gallbladder wall thickening. There is mild adjacent fat stranding. Spleen, Pancreas, and Adrenal Glands: The spleen, pancreas, and adrenal glands are unremarkable. Kidneys: The kidneys have normal size without evidence of solid mass or hydronephrosis. Stomach: The stomach and duodenum have normal course. Other: No free intraperitoneal air. No free fluid or lymphadenopathy. Pelvis: Bladder: Urinary bladder is unremarkable. Bowel: No dilated loops of large or small bowel. There is some wall thickening involving the ascend ing and transverse colon. There appears to be some fat deposition in the wall, suggesting chronic inf lammation. Appendix: Surgically absent. Pelvis: No visualized mass. Bones: No destructive bone lesions identified. IMPRESSION: 1. No visualized aortic aneurysm or dissection. 2. There is some focal narrowing at the origin of the celiac trunk, possibly due to median arcuate li gament compression. Mid and distal portions are widely patent. 3. There is diffuse gallbladder wall thickening with adjacent fat stranding which could be due to acu te cholecystitis. Correlate with ultrasound to assess for cholelithiasis. 4. Areas of colon wall thickening with underlying fat deposition in the wall, probably due to areas o f chronic inflammation. Cannot exclude superimposed acute component. Electronically signed by: Manjula Bill MD 04/28/2023 12:18 AM CDT Due to temporary technical issues with the PACS/Fluency reporting system, reports are being signed by the in house radiologists without review as a courtesy to insure prompt reporting. The interpreting radiologist is fully responsible for the content of the report.
--- NOTE | 2023-04-28 20:19 | RAD REPORT ---
EXAM DESCRIPTION: US Abdomen Limited, Gallbladder CLINICAL HISTORY: The patient is 37 years old and is Male; EPIGASTRIC PAIN TECHNIQUE: Real-time ultrasound of the right upper quadrant with image documentation. COMPARISON: No relevant prior studies available. FINDINGS: LIVER: The liver is increased in echogenicity. GALLBLADDER: Gallbladder wall thickening is present measuring up to 0.4 cm. Small amount of peric holecystic fluid is noted. Several gallstones are present. COMMON BILE DUCT: Unremarkable as visualized. No stones. No dilation. IMPRESSION: Cholelithiasis with findings concerning for acute cholecystitis. Electronically signed by: Mary Garcia MD 04/28/2023 12:56 AM CDT Due to temporary technical issues with the PACS/Fluency reporting system, reports are being signed by the in house radiologists without review as a courtesy to insure prompt reporting. The interpreting radiologist is fully responsible for the content of the report.
[2023-04-29] MEDS: PIPER TAZO 3.375 GM in NA CHLORIDE 0.9% 100 ML IV SCH ×2 (00:12→08:26)
[2023-04-29] MEDS: NA CHLORIDE 0.9% 1,000 ML IV SCH (03:23)
[2023-04-29 06:06] LABS: Absolute Lymphocytes (CBC) 2.2 K/uL (0.7-4.9); Hematocrit 38.9 % (39.6-49.0); Lymphocytes % 14.6 % (15.3-44.8); MCV 87.3 fL (80-100); MPV 8.1 fL (7.6-11.3); Platelets 227 thou/uL (152-406); RBC Red Blood Cell Count 4.45 M/uL (4.33-5.43)
[2023-04-29 06:28] LABS: Albumin 2.9 g/dL (3.4-5.0); Bilirubin Total 1.4 mg/dL (0.2-1.0); Phosphorus 2.9 mg/dL (2.5-4.9); Potassium 3.8 mEq/L (3.5-5.1); Protein, Total 6.3 g/dL (6.4-8.2)
--- NOTE | 2023-04-29 08:36 | P.DS ---
Discharge Date: 04/29/23 Disposition: ROUTINE DISCHARGE Discharge Condition: GOOD Reason for Admission: epigastric pain Consultations: General surgery Brief History of Present Illness: Patient is a 37-year-old gentleman who presented to the hospital with abdominal pain. Patient was found to have acute cholecystitis. Patient was taken to the operating room by general surgery for laparoscopic cholecystectomy. Hospital Course: She has done well during hospitalization. Patient clinically stable. At this time patient is well and stable for discharge home. Vital Signs/Physical Exam: Temp Pulse Resp BP Pulse Ox 98.2 F 59 18 114/67 95 04/29/23 04:00 04/29/23 04:00 04/29/23 04:00 04/29/23 04:00 04/29/23 04:00 General: Alert, In no apparent distress, Oriented x3 Laboratory Data at Discharge: WBC 15.20 thou/uL (4.3-10.9) H 04/29/23 05:32 Hgb 13.3 g/dL (13.6-17.9) L 04/29/23 05:32 Hct 38.9 % (39.6-49.0) L 04/29/23 05:32 Plt Count 227 thou/uL (152-406) 04/29/23 05:32 PT 10.2 SECONDS (9.5-12.5) 04/27/23 22:16 INR 0.93 04/27/23 22:16 Sodium 139 mEq/L (136-145) 04/29/23 05:32 Potassium 3.8 mEq/L (3.5-5.1) 04/29/23 05:32 BUN 11 mg/dL (7-18) 04/29/23 05:32 Creatinine 1.03 mg/dL (0.70-1.30) 04/29/23 05:32 Glucose 122 mg/dL (74-106) H 04/29/23 05:32 Phosphorus 2.9 mg/dL (2.5-4.9) 04/29/23 05:32 Magnesium 2.0 mg/dL (1.6-2.4) 04/29/23 05:32 Total Bilirubin 1.4 mg/dL (0.2-1.0) H 04/29/23 05:32 AST 33 U/L (15-37) 04/29/23 05:32 ALT 68 U/L (16-61) H 04/29/23 05:32 Alkaline Phosphatase 61 U/L (45-117) 04/29/23 05:32 Lipase 45 U/L (13-75) 04/27/23 22:16 Home Medications: NK [No Home Meds] 04/28/23 Physician Discharge Instructions: -DC IV and DC home -Follow-up with PCP in 1 to 2 weeks -Follow-up with Surgeon, Dr. Arnold, in 1 to 2 weeks -Please call Dr. Pemberton at [phone] if any questions regarding hospital stay -Please call nursing station at [phone] if any nursing or medication questions -Return to the emergency room if symptoms worsen Diet: [place] Activity: No lifting more than 10 lbs Followup: Terence Arnold MD [ACTIVE - CAN ADMIT] - NONE,NONE [Primary Care Provider] - Time spent managing pt's care (in minutes): 35
[2023-04-29] MEDS ORDERED: POTASSIUM CL SA 10 MEQ TAB PO ONE (09:00)
[2023-04-29 12:01] VITALS: BP 124/67; TEMP 97.6
[2023-04-29 14:32] LABS: Albumin 2.8 g/dL (3.4-5.0); Bilirubin Total 1.1 mg/dL (0.2-1.0); Potassium 3.8 mEq/L (3.5-5.1); Protein, Total 6.3 g/dL (6.4-8.2)
--- NOTE | 2023-04-29 18:13 | EKG ---
Test Date: 2023-04-27 Test Time: 21:43:06 Stamp Classifier: BRITNI MEASUREMENT RESULTS: Intervals: Rate: 59 KS: 166 QRSD: 96 QT: 422 QTc: 417 Java: P: 35 KS: 166 QRS: 80 T: 69 INTERPRETIVE STATEMENTS: Sinus bradycardia with sinus arrhythmia Otherwise normal ECG No previous ECG available for comparison Electronically Signed On 04-29-23 18:11:30 CDT by Osmany Colindres
--- NOTE | 2023-04-29 18:13 | EKG ---
Test Date: 2023-04-27 Test Time: 22:43:51 Industrial Education Teacher: KAITLYNN MEASUREMENT RESULTS: Intervals: Rate: 42 CA: 182 QRSD: 100 QT: 486 QTc: 405 Mcnabb: P: 50 CA: 182 QRS: 78 T: 64 INTERPRETIVE STATEMENTS: Marked sinus bradycardia with premature atrial complexes Abnormal ECG Compared to ECG 04/27/2023 21:43:06 Atrial premature complex(es) now present Sinus arrhythmia no longer present Electronically Signed On 04-29-23 18:11:21 CDT by Osmany Colindres
--- NOTE | 2023-04-29 23:41 | CON ---
Date of Consultation: 04/29/2023 Reason For Consultation: Bradycardia. History Of Present Illness: This is a 37-year-old male, who was admitted for acute cholecystitis sta tus post cholecystectomy. Apparently had a few episodes with the heart rate dropping down to high 30 s, low 40s, but the patient is asymptomatic, it was during sleep; during the days, heart rate is good and patient is asymptomatic. Past Medical History: None. Medications: None. Allergies: HE IS ALLERGIC TO CALCIUM. Family History: No premature coronary artery disease or cancer. Social History: He is a smoker. He does not drink or use any drugs. Review of Systems: All systems reviewed and they are negative, except as mentioned in the HPI. Physical Examination: Vital Signs: Reviewed. Head and Neck: Pupils are equal, reactive to light. Intact eye movements. No JVD. No cervical lym phadenopathy. Neck: Supple. Thyroid is not enlarged. Lungs: Clear to auscultation bilaterally. No rhonchi, rales, or crackles. No accessory muscle use. Heart: Regular rate and rhythm. No extra sounds. Abdomen: Soft, nontender. Bowel sounds positive. No organomegaly. No masses or hernia. No rigidi ty or rebound. Extremities: No edema, clubbing, cyanosis. Intact pulses. Skin: No rash. Neurologic: Alert, awake, and oriented x3. No gross deficits appreciated. Investigations: BUN is 10, creatinine 1.1, and hemoglobin is 13.3. Assessment/recommendation: 1.Transient episode of sinus bradycardia. No heart block, it is during sleep, probably related to s leep apnea. During the day, his heart rate response is appropriate to activities. I recommend outpa tient evaluation with echo and 1-week Holter monitor. From our perspective, the patient can be disch arged and follow up with him as an outpatient. 2.Acute cholecystitis status post cholecystectomy. SR/MODL Voice ID: [id number] Report ID: [id number]
== END 2023-04-29 16:30 | disposition home or self-care (01) | DRG 419 ==
LOC: ER 21:36 → ERHOLD 04-28 02:15 → 4TH 04-28 02:29
PROVIDERS: ADMIT Hospitalist; ATTEND Hospitalist
PROC: BF52200 Other Imaging of Gallbladder using Fluorescing Agent, Indocyanine Green Dye, Intraoperative (ICD-10-PCS; 2023-04-28)
PROC: 0FT44ZZ Resection of Gallbladder, Percutaneous Endoscopic Approach (ICD-10-PCS; principal; 2023-04-28 12:15)
DX: K81.0 Acute cholecystitis (principal); R00.1 Bradycardia, unspecified; I10 Essential (primary) hypertension; K82.A1 Gangrene of gallbladder in cholecystitis; Z91.09 Other allergy status, other than to drugs and biological substances; Z90.49 Acquired absence of other specified parts of digestive tract; Z87.891 Personal history of nicotine dependence
CPT/HCPCS: 36415; 71045; 71275; 74175; 76705; 80048; 80053; 80076; 80307; 81001; 83605; 83690; 83735; 84100; 84484; 85025; 85610; 87040; 88304; 93005; 99285; J0360; J1100; J1170; J2001; J2250; J2405; J2543; J2550; J2704; J2710; J3010; J7030; J7120; Q9967

== ENCOUNTER 2023-05-24 19:59 | Emergency (ER) | payer BC ==
--- OUTSIDE RECORDS SUMMARY | 2023-05-24 21:00 | XMS REPORT | Continuity of Care Document ---
:1985 Author Organization [facility] t Address [address] [place] [id number] Care Team Providers Name Role Phone Unavailable Unavailable Unavailable Problems This patient has no known problems. Allergies, Adverse Reactions, Alerts This patient has no known allergies or adverse reactions. Medications This patient has no known medications. Procedures This patient has no known procedures. Results This patient has no known results.
--- NOTE | 2023-05-24 23:41 | EDPHYS ---
Physician Documentation [facility] Name: Bairon Matthew II Age: 37 yrs Sex: Male : 1985 Arrival Date: 05/24/2023 Time: 19:59 Bed Treatment Private MD: Rito Orozco HPI: 05/24 23:37 This 37 yrs old Male presents to ER via Ambulatory with complaints of POST meena SURGICAL PROBLEM. 23:37 The patient presents with cellulitis of the umbilical area. Description: The affected meena area is small, confluent, draining, erythematous. Onset: The symptoms/episode began/occurred 2 day(s) ago. Possible cause(s): unknown. Associated signs and symptoms: The patient has no apparent associated signs or symptoms. Modifying factors: the symptoms are alleviated by nothing, the symptoms are aggravated by pressure. Severity of symptoms: At their worst the symptoms were very mild. The patient has not experienced similar symptoms in the past. Historical: - Allergies: 20:28 No Known Allergies; vc1 - Home Meds: 20:28 None [Active]; vc1 - PMHx: 20:28 None; vc1 - PSHx: 20:28 Appendectomy; Cholecystectomy; vc1 - Immunization history:: Adult Immunizations up to date, Client reports having NOT received the Covid vaccine. - Social history:: Smoking status: Reported history of juuling and/or vaping. - Family history:: not pertinent. ROS: 23:37 Constitutional: Negative for fever, chills, and weight loss, Eyes: Negative for injury, meena pain, redness, and discharge, ENT: Negative for injury, pain, and discharge, Neck: Negative for injury, pain, and swelling, Cardiovascular: Negative for chest pain, palpitations, and edema, Respiratory: Negative for shortness of breath, cough, wheezing, and pleuritic chest pain, Back: Negative for injury and pain, : Negative for injury, bleeding, discharge, and swelling, MS/Extremity: Negative for injury and deformity, Skin: Negative for injury, rash, and discoloration, Neuro: Negative for headache, weakness, numbness, tingling, and seizure, Psych: Negative for depression, anxiety, suicide ideation, homicidal ideation, and hallucinations, Allergy/Immunology: Negative for hives, rash, and allergies, Endocrine: Negative for neck swelling, polydipsia, polyuria, polyphagia, and marked weight changes, Hematologic/Lymphatic: Negative for swollen nodes, abnormal bleeding, and unusual bruising. 23:37 Abdomen/GI: Positive for abdominal pain, of the umbilical area. Exam: 23:37 Constitutional: This is a well developed, well nourished patient who is awake, alert, meena and in no acute distress. Head/Face: Normocephalic, atraumatic. Eyes: Pupils equal round and reactive to light, extra-ocular motions intact. Lids and lashes normal. Conjunctiva and sclera are non-icteric and not injected. Cornea within normal limits. Periorbital areas with no swelling, redness, or edema. ENT: Nares patent. No nasal discharge, no septal abnormalities noted. Tympanic membranes are normal and external auditory canals are clear. Oropharynx with no redness, swelling, or masses, exudates, or evidence of obstruction, uvula midline. Mucous membranes moist. Neck: Trachea midline, no thyromegaly or masses palpated, and no cervical lymphadenopathy. Supple, full range of motion without nuchal rigidity, or vertebral point tenderness. No Meningismus. Chest/axilla: Normal chest wall appearance and motion. Nontender with no deformity. No lesions are appreciated. Cardiovascular: Regular rate and rhythm with a normal S1 and S2. No gallops, murmurs, or rubs. Normal PMI, no JVD. No pulse deficits. Respiratory: Lungs have equal breath sounds bilaterally, clear to auscultation and percussion. No rales, rhonchi or wheezes noted. No increased work of breathing, no retractions or nasal flaring. Abdomen/GI: Soft, non-tender, with normal bowel sounds. No distension or tympany. No guarding or rebound. No evidence of tenderness throughout. Back: No spinal tenderness. No costovertebral tenderness. Full range of motion. Male : Normal genitalia with no discharge or lesions. MS/ Extremity: Pulses equal, no cyanosis. Neurovascular intact. Full, normal range of motion. Neuro: Awake and alert, GCS 15, oriented to person, place, time, and situation. Cranial nerves II-XII grossly intact. Motor strength 5/5 in all extremities. Sensory grossly intact. Cerebellar exam normal. Normal gait. Psych: Awake, alert, with orientation to person, place and time. Behavior, mood, and affect are within normal limits. 23:37 Skin: abscess, that is small, of the umbilical area, with drainage, that is serosanguinous, cellulitis, that is minimal, induration, that is mild is noted. Vital Signs: 20:27 BP 137 / 92; Pulse 79; Resp 18; Temp 98.1; Pulse Ox 99% ; Weight 92.99 kg; Height 6 ft. vc1 0 in. ; Pain 3/10; 20:27 Body Mass Index 27.80 (92.99 kg, 182.88 cm) vc1 20:27 Pain Scale: Adult vc1 MDM: 20:42 Patient medically screened. meena 23:39 Differential diagnosis: abscess, cellulitis. Data reviewed: vital signs, nurses notes. meena Consideration of Admission/Observation Escalation of care including admission/observation considered. I considered the following discharge prescriptions or medication management in the emergency department Medications were administered in the Emergency Department. See MAR. Test considered but Not performed: Labs: no labs. Historians other than the Patient: none. Care significantly affected by the following chronic conditions: none. Counseling: I had a detailed discussion with the patient and/or guardian regarding the historical points, exam findings, and any diagnostic results supporting the discharge/admit diagnosis, the need for outpatient follow up, for definitive care, a general surgeon. 05/24 23:36 Order name: Wound dressing: wet to dry; Complete Time: 23:37 meena Administered Medications: 23:45 Drug: Cephalexin PO 500 mg Route: PO; kl Disposition Summary: 05/24/23 23:41 Discharge Ordered Location: Home meena Problem: new meena Symptoms: have improved meena Condition: Stable meena Diagnosis - Cutaneous abscess of abdominal wall - superficial , post op, draining meena Followup: meena - With: Private Physician - When: 2 - 3 days - Reason: Recheck today's complaints, Continuance of care, Re-evaluation by your physician Followup: meena - With: Terence Arnold MD - When: 2 - 3 days - Reason: Recheck today's complaints, Continuance of care, Re-evaluation by your physician Discharge Instructions: - Discharge Summary Sheet meena - Skin Abscess meena - Delayed Wound Closure meena - Incision and Drainage meena - Skin Abscess, [id number] meena Forms: - Medication Reconciliation Form meena - Thank You Letter meena - Antibiotic Education meena - Prescription Opioid Use meena - Patient Portal Instructions meena - Leadership Thank You Letter meena Prescriptions: - Cephalexin 500 mg Oral Capsule - take 1 capsule by ORAL route every 6 hours for 7 days; 28 capsule; Refills: 0, meena Product Selection Permitted Signatures: Lynne Swann, RN Rito Valenzuela MD MD cha Calcote, Vanessa, RN RN vc1
--- NOTE | 2023-05-24 23:41 | ER ---
Nurse's Notes [facility] Name: Bairon Matthew II Age: 37 yrs Sex: Male : 1985 Arrival Date: 05/24/2023 Time: 19:59 Bed Treatment Private MD: Diagnosis: Cutaneous abscess of abdominal wall-superficial , post op, draining Presentation: 05/24 20:27 Chief complaint: Patient states: gall bladder removed on 28 of april and my stitches vc1 opened up. Coronavirus screen: Client denies travel out of the [place] in the last 14 days. At this time, the client does not indicate any symptoms associated with coronavirus-19. Ebola Screen: Patient negative for fever greater than or equal to 101.5 degrees Fahrenheit, and additional compatible Ebola Virus Disease symptoms Patient denies exposure to infectious person. Patient denies travel to an Ebola-affected area in the 21 days before illness onset. No symptoms or risks identified at this time. Initial Sepsis Screen: Does the patient meet any 2 criteria? No. Patient's initial sepsis screen is negative. Does the patient have a suspected source of infection? No. Patient's initial sepsis screen is negative. Risk Assessment: Do you want to hurt yourself or someone else? Patient reports no desire to harm self or others. Onset of symptoms was May 24, 2023. 20:27 Method Of Arrival: Ambulatory vc1 20:27 Acuity: TRAY 4 vc1 Triage Assessment: 20:29 General: Appears in no apparent distress. uncomfortable, Behavior is calm, cooperative, vc1 appropriate for age. Pain: Complains of pain in umbilical area. EENT: No deficits noted. No signs and/or symptoms were reported regarding the EENT system. Neuro: No deficits noted. Cardiovascular: No deficits noted. Respiratory: Airway is patent Respiratory effort is even, unlabored, Respiratory pattern is regular, symmetrical. GI: Reports epigastric pain. : No deficits noted. No signs and/or symptoms were reported regarding the genitourinary system. Derm: Wound noted Other: sutures from gall bladder removal. Musculoskeletal: No deficits noted. No signs and/or symptoms reported regarding the musculoskeletal system. Historical: - Allergies: 20:28 No Known Allergies; vc1 - Home Meds: 20:28 None [Active]; vc1 - PMHx: 20:28 None; vc1 - PSHx: 20:28 Appendectomy; Cholecystectomy; vc1 - Immunization history:: Adult Immunizations up to date, Client reports having NOT received the Covid vaccine. - Social history:: Smoking status: Reported history of juuling and/or vaping. - Family history:: not pertinent. Screenin:52 [facility] ED Fall Risk Assessment (Adult) History of falling in the last 3 months, kl including since admission No falls in past 3 months (0 pts) Confusion or Disorientation No (0 pts) Intoxicated or Sedated No (0 pts) Impaired Gait No (0 pts) Mobility Assist Device Used No (0 pt) Altered Elimination No (0 pt) Score/Fall Risk Level 0 - 2 = Low Risk. Abuse screen: Denies threats or abuse. Nutritional screening: No deficits noted. Tuberculosis screening: No symptoms or risk factors identified. Assessment: 23:52 Reassessment: Patient appears in no apparent distress at this time. kl 23:53 Derm: Wound noted umbilical area Wound is small opening no drainage noted. Vital Signs: 20:27 BP 137 / 92; Pulse 79; Resp 18; Temp 98.1; Pulse Ox 99% ; Weight 92.99 kg; Height 6 ft. vc1 0 in. ; Pain 3/10; 20:27 Body Mass Index 27.80 (92.99 kg, 182.88 cm) vc1 20:27 Pain Scale: Adult vc1 ED Course: 20:03 Patient arrived in ED. es 20:28 Triage completed. vc1 20:29 Arm band placed on left wrist. vc1 20:41 Rito Bashir MD is Attending Physician. meena 23:41 Terence Arnold MD is Referral Physician. [facility] 23:53 No provider procedures requiring assistance completed. Patient did not have IV access kl during this emergency room visit. Administered Medications: 23:45 Drug: Cephalexin PO 500 mg Route: PO; Outcome: 23:41 Discharge ordered by . [facility] 23:53 Discharged to home ambulatory. 23:53 Condition: stable 23:53 Discharge instructions given to patient, Instructed on discharge instructions, follow up and referral plans. medication usage, Demonstrated understanding of instructions, follow-up care, medications, Prescriptions given X 1. 23:53 Patient left the ED. Signatures: Lynne Swann RN RN kl Anderson, Corey, MD MD cha Salyer, Makenna es [place]cote, Nancy, RN RN vc1
[2023-05-24] MEDS ORDERED: CEPHALEXIN 250 MG CAP ONE (23:56)
[2023-05-25 00:17] VITALS: BP 137/92; TEMP 98.1; O2SAT 99
== END 2023-05-24 23:53 | disposition home or self-care (01) ==
LOC: ER 19:59
DX: L03.311 Cellulitis of abdominal wall (principal); L02.211 Cutaneous abscess of abdominal wall; Z90.49 Acquired absence of other specified parts of digestive tract
CPT/HCPCS: 99283